=== PATIENT | male | born 1960 | race Caucasian/White ===

== ENCOUNTER 2019-11-19 15:31 | Emergency (ER) | payer OTHER ==
[~2019-11-19] VITALS: Ht 180.3 cm; Wt 124.7 kg
[2019-11-19] MEDS ORDERED: NOHOMEMEDICATIONS (17:29)
[2019-11-19 18:18] LABS: ANION GAP 9 mmol/L (7-16); BUN 5 mg/dL (7-18); CALCIUM 9.4 mg/dL (8.5-10.1); CHLORIDE 104 mmol/L (98-107); CO2 28 mmol/L (21-32); CREATININE 0.7 mg/dL (0.7-1.3); GLUCOSE 90 mg/dL (74-106); SODIUM 141 mmol/L (136-145)
[2019-11-19 18:23] LABS: HEMATOCRIT 39.7 % (42.0-52.0); HEMOGLOBIN 13.3 gm/dL (14.0-18.0); MCHC 33.6 g/dL (28.0-37.0); MCV 89.2 fL (80.0-100.0); PLATELET COUNT 161 thou/uL (150-400); RBC 4.45 mil/uL (4.50-6.00); WBC 9.2 thou/uL (4.0-11.0)
[2019-11-19 18:28] LABS: TROPONIN-I <0.06 ng/mL (<0.06)
[2019-11-19 18:58] LABS: ATYPICAL LYMPHS 2 %
[2019-11-19] MEDS ORDERED: PRINIVIL10 MG PO (19:03)
[2019-11-19 19:17] VITALS: BP 150/96
--- NOTE | 2019-11-20 10:15 | EKG ---
[facility] [place] [address] ELECTROCARDIOGRAM REPORT Name: NAM DAS Room [facility]: [facility] [id number] Admission: 11/19/19 Attend Phys: Discharge: Date of : 60 Report #: [id number] THIS REPORT FOR: //name// [facility] ED Test Date: 2019-11-19 Test Time: 15:39:08 Pat Name: NAM DAS Department: Room: Gender: [employer]: : 1960 Requested By: Glenda Duran Order Number: [id number] MD: Jose Dupree Measurements Intervals [place] Rate: 102 P: -16 HI: 198 QRS: -17 QRSD: 84 T: 43 QT: 333 QTc: 434 Interpretive Statements Sinus tachycardia Baseline wander in lead(s) V3,V4,V5,V6 No previous ECG available for comparison Electronically Signed On 11-20-2019 10:15:04 BOOKY by Jose Dupree [email or web address] <ELECTRONICALLY SIGNED> By: Jose Dupree MD, [facility] 11/20/19 1015 [id number] Jose Dupree MD, FACC /EPI
== END 2019-11-19 19:15 | disposition home or self-care (01) ==
LOC: ER 15:31
PROVIDERS: Emergency Medicine
DX: R07.89 Other chest pain (principal); R06.02 Shortness of breath; I10 Essential (primary) hypertension; Z87.891 Personal history of nicotine dependence